=== PATIENT | male | born 1965 | race Caucasian/White ===

== ENCOUNTER → 2019-05-16 | Emergency (ER) | payer OTHER ==
[~2019-05-16] VITALS: Ht 180.3 cm; Wt 90.7 kg
[~2019-05-16] MED LIST: CLONAZEPAM1 M1
== END | disposition home or self-care (01) ==
LOC: ER 05:12
DX: G43.809 Other migraine, not intractable, without status migrainosus (principal)

== ENCOUNTER 2023-05-20 15:44 | Emergency (ER) | payer OTHER ==
[~2023-05-20] VITALS: Ht 185.4 cm; Wt 81.6 kg
[2023-05-20 17:12] LABS: HEMATOCRIT 46.7 % (39.0-48.0); HEMOGLOBIN 16.3 g/dL (13-16.00); MEAN CELL VOLUME 84.3 fL (80.0-100.00); MEAN CORPUSCULAR HEMOGLOBIN 29.5 pg (27.00-32.0); PLATELET COUNT 103 K/uL (150-450); RED BLOOD COUNT 5.54 M/uL (4.00-6.00); RED CELL DISTRIBUTION WIDTH 14.5 % (11.5-14.5)
[2023-05-20 17:16] LABS: PH,URINE 5.5 (5.0-8.0); URINE APPEARANCE Clear; URINE BILIRRUBIN Small (NEGATIVE); URINE BLOOD Small; URINE COLOR Dark Yellow; URINE GLUCOSE Negative (NEGATIVE); URINE LEUKOCYTE Negative; URINE NITRATE Negative
[2023-05-20 17:17] LABS: URINE BACTERIA 17.6 uL (0.0-1933); URINE EPITHELIAL CELLS 4.3 uL (0.0-38.8); URINE WBC 5.5 uL (0.0-23.2)
[2023-05-20 17:20] LABS: URINE PROTEIN 300 (NEGATIVE)
[2023-05-20 17:34] LABS: ALBUMIN 3.9 gm/dL (3.4-5.0); BILIRUBIN TOTAL 0.44 mg/dL (0.3-1.2); CREATININE SERUM 1.27 mg/dL (0.70-1.30); GFR 58.66; GLOBULINA 4.2 G/DL (2.4-3.5); POTASSIUM 3.21 mEq/L (3.5-5.1); TOTAL PROTEIN 8.1 gm/dL (6.4-8.2)
== END 2023-05-20 20:30 | disposition home or self-care (01) ==
LOC: ER 15:44
PROVIDERS: General Practice
DX: A90 Dengue fever [classical dengue] (principal); R50.9 Fever, unspecified
CPT/HCPCS: 36415; 96365; 96366; 99284; J3490; J7030

== ENCOUNTER 2024-12-24 09:47 | Emergency (ER) | payer OTHER ==
[~2024-12-24] VITALS: Ht 180.3 cm; Wt 83.9 kg
[2024-12-24 10:59] LABS: BASO % 0.4 % (0.1-1.2); EOS # 0.27 (0.04-0.54); HEMATOCRIT 48.2 % (40.1-51.0); HEMOGLOBIN 16.5 g/dL (13.7-17.5); LYMPH # 1.88 (1.18-3.74); LYMPH % 20.9 % (19.3-53.1); MEAN CORPUSCULAR HEMOGLOBIN 29.9 pg (25.6-32.2); MONO # 0.63 (0.24-0.82); NEUT # 6.13 (1.56-6.13); NEUT % 68.4 % (34.0-71.1); PLATELET COUNT 165 K/uL (163-369); RED BLOOD COUNT 5.52 M/uL (4.63-6.08); RED CELL DISTRIBUTION WIDTH 14.2 % (11.6-14.4)
[2024-12-24 11:29] LABS: URINE APPEARANCE Clear; URINE BILIRRUBIN Negative (NEGATIVE); URINE BLOOD Small; URINE COLOR Yellow; URINE GLUCOSE Negative (NEGATIVE); URINE KETONE Negative (NEGATIVE); URINE LEUKOCYTE Negative; URINE NITRATE Negative; URINE PROTEIN Negative (NEGATIVE); URINE UROBILINOGEN 0.2 E.U./dl
[2024-12-24 11:33] LABS: URINE BACTERIA 6.1 uL (0.0-1933); URINE WBC 2.5 uL (0.0-23.2)
[2024-12-24 11:44] LABS: ALBUMIN 3.9 gm/dL (3.4-5.0); BILIRUBIN TOTAL 0.74 mg/dL (0.3-1.2); CALCIUM 9.1 mg/dL (8.5-10.1); CREATININE SERUM 1.01 mg/dL (0.70-1.30); GFR 76.14; GLOBULINA 3.6 G/DL (2.4-3.5); POTASSIUM 3.94 mEq/L (3.5-5.1); TOTAL PROTEIN 7.5 gm/dL (6.4-8.2)
[2024-12-24 11:51] LABS: URINE EPITHELIAL CELLS 0.6 uL (0.0-38.8)
== END 2024-12-24 12:22 | disposition home or self-care (01) ==
LOC: ER 09:47
PROVIDERS: General Practice
DX: M54.50 Low back pain, unspecified (principal); N20.1 Calculus of ureter